=== PATIENT | female | born 1995 | race African-American/Black ===

== ENCOUNTER 2018-05-22 20:45 | Inpatient (IN) ==
[2018-05-22] MEDS ORDERED: Sodium Chlor 0.9% Inj 500 ML IV.SIG SCH (23:00)
[2018-05-22 23:05] LABS: Bilirubin,Urine Negative (Negative); Clarity,Urine Slightly Cloudy (Clear); Color,Urine Yellow (Yellw/Straw); Glucose,Urine (UA) Negative (Negative); Leukocyte Esterase,Urine Small (Negative); Nitrite,Urine Negative (Negative); PH,Urine 5.5 (5.0-8.5); Specific Gravity,Urine 1.015 (1.002-1.035); Urobilinogen,Urine 0.2 mg/dL (Less than 2)
[2018-05-22 23:06] LABS: Baso % (Auto) 0.2 % (0.0-2.0); Eos % (Auto) 0.5 % (0.0-4.0); Hematocrit 34.2 % (35.0-46.0); Hemoglobin 11.4 gm/dL (11.6-15.3); Lymph # (Auto) 0.7 th/mm3 (1.0-4.8); Lymph % (Auto) 7.1 % (9.0-44.0); Mean Corpuscular HGB Conc 33.4 % (32.0-36.0); Mean Corpuscular Hemoglobin 29.9 pg (27.0-34.0); Mean Corpuscular Volume 89.7 fL (80.0-100.0); Mean Platelet Volume 7.9 fL (7.0-11.0); Mono # (Auto) 1.6 th/mm3 (0.0-0.9); Mono % (Auto) 17.1 % (0.0-8.0); Neut # (Auto) 7.3 th/mm3 (1.8-7.7); Neut % (Auto) 75.1 % (16.0-70.0); Platelet Count 102 th/mm3 (150-450); Red Blood Count 3.81 mil/mm3 (4.00-5.30); Red Cell Distribution Width 14.3 % (11.6-17.2); White Blood Count 9.6 th/mm3 (4.0-11.0)
[2018-05-22 23:10] LABS: WBC,Urine 21-50 /hpf (0-5)
[2018-05-22 23:11] LABS: Bacteria,Urine Few /hpf
[2018-05-22 23:13] LABS: Chloride 108 meq/L (98-107); Potassium 3.8 meq/L (3.5-5.1); Sodium 137 meq/L (136-145)
[2018-05-22 23:16] LABS: Anion Gap 8 meq/L (5-15); Calcium 8.8 mg/dL (8.5-10.1); Carbon Dioxide 20.9 meq/L (21.0-32.0)
[2018-05-22 23:17] LABS: Blood Urea Nitrogen 28 mg/dL (7-18); Glucose,Random 111 mg/dL (74-106)
[2018-05-22 23:19] LABS: Alanine Aminotransferase 11 U/L (10-53)
[2018-05-22 23:20] LABS: Aspartate Aminotransferase 14 U/L (15-37); Glomerular Filtration Rate 24 mL/min (>89)
[2018-05-22 23:21] LABS: Total Protein 6.7 g/dL (6.4-8.2)
[2018-05-22 23:22] LABS: Alkaline Phosphatase 85 U/L (45-117)
--- NOTE | 2018-05-22 23:53 | ED ---
HPI General Chief complaint: Nausea/Vomiting/Diarrhea Stated complaint: vomiting/diarrhea x today Source: patient Mode of arrival: ambulatory Limitations: no limitations History of Present Illness HPI narrative: Patient is a 23-year-old female with history of renal transplant one year ago, who comes in complaining of nausea, vomiting, diarrhea at this morning. She says it is been going on all day. She denies any abdominal pain. She says she had a fever of 101 today. She took Tylenol which helped. She denies cough or cold symptoms. She denies urinary symptoms. She says the last thing she ate prior to feeling sick was a salad. She denies any sick contacts. Severity is mild to moderate. Related Data Home Medications Medication Instructions Recorded Confirmed Multi Vitamin 05/22/18 aspirin [Aspir-81] 81 mg PO DAILY 05/22/18 05/22/18 carvedilol [Coreg] 25 mg PO BID 05/22/18 05/22/18 ciprofloxacin HCl [Cipro] 500 mg PO Q12H 05/22/18 05/22/18 furosemide [Lasix] 40 mg PO DAILY 05/22/18 05/22/18 magnesium oxide 400 mg PO BID 05/22/18 05/22/18 nifedipine 60 mg PO DAILY 05/22/18 05/22/18 prednisone 5 mg PO DAILY 05/22/18 05/22/18 sodium bicarbonate 325 mg PO BID 05/22/18 05/22/18 tacrolimus [Prograf] 2 mg PO Q12H 05/22/18 05/22/18 Allergies Allergy/AdvReac Type Severity Reaction Status Date / Time No Known Allergies Allergy Verified 05/22/18 22:19 Review of Systems ROS: all other systems reviewed are negative Constitutional Denies chills and Denies fever(s) ENT Denies dizziness Cardiovascular Denies chest pain and Denies dyspnea Respiratory Denies cough Gastrointestinal Denies abdominal pain, Reports diarrhea, Reports nausea and Reports vomiting Musculoskeletal Denies myalgias and Denies arthralgias Integumentary/Breasts Denies rash and Denies wounds Neurologic Denies focal weakness and Denies numbness [facility] Medical History Medical History Arteriovenous fistula (Acute) History of end stage renal disease (Acute) History of hypertension (Acute) Surgical History Surgical History History of kidney transplant (Acute) Social History Social History Substance History: No History of Abuse Second Hand Smoke Exposure: No Smoking Status: Never smoker How Often Do You Have a Drink Containing Alcohol: Never Recent Travel in [facility] within the Last 8 Weeks: No Recent Out of Country Travel within the Last 8 Weeks: No Immunization History Tetanus Immunization: <5 Years Hx Influenza Vaccine This Season: No Exam Narrative Exam Narrative: GENERAL: Awake and alert, in no acute distress. SKIN: Focused skin assessment warm/dry. HEAD: Atraumatic. Normocephalic. EYES: Pupils equal and round. No scleral icterus. ENT: Mucous membranes pink and moist. NECK: Trachea midline. No JVD. CARDIOVASCULAR: Regular rate and rhythm. No murmur appreciated. RESPIRATORY: No accessory muscle use. Clear to auscultation. Breath sounds equal bilaterally. GASTROINTESTINAL: Abdomen soft, non-tender, nondistended. No CVA tenderness. MUSCULOSKELETAL: No obvious deformities. No clubbing. No cyanosis. No edema. NEUROLOGICAL: Awake and alert. No obvious cranial nerve deficits. Motor grossly within normal limits. Normal speech. PSYCHIATRIC: Appropriate mood and affect; insight and judgment normal. Course Initial Documented Vital Signs Temperature 99.7 F H 05/22/18 21:04 Pulse Rate 115 H 05/22/18 21:04 Respiratory Rate 18 05/22/18 21:04 Blood Pressure 126/78 05/22/18 21:04 Pulse Oximetry 98 05/22/18 21:04 Last Documented Vital Signs Temperature 99.7 F H 05/22/18 21:04 Pulse Rate 90 05/23/18 00:35 Respiratory Rate 16 05/23/18 00:35 Blood Pressure 128/82 05/23/18 00:35 Pulse Oximetry 97 05/22/18 23:11 Medical Decision Making MDM Narrative Medical decision making narrative: Patient is a 23-year-old female, with history of renal transplant, who comes in complaining of nausea, vomiting, diarrhea. Exam shows no abdominal tenderness. IV established, labs sent. Labs concerning for a creatinine of 2.9. Patient believes her last creatinine was 1.9. I spoke with our health sciences program coordinator who suggests admission and hydration. she will contact [facility] tomorrow for a plan going forward. Patient given IV fluids and Zofran. Admitted for further management. Medical Screen Exam Complete: Yes Emergency Medical Condition: Yes Differential Diagnosis Differential Diagnosis: Gastroenteritis versus colitis versus kidney injury Lab Data Lab results reviewed: Yes I reviewed the patient's lab results. Result diagrams: 05/22/18 23:00 05/22/18 23:00 POC Results POC Urine Results Negative Lab Results 05/22/18 05/22/18 05/22/18 Range/Units 23:00 23:00 23:00 CBC w Diff Auto diff final WBC 9.6 (4.0-11.0) th/mm3 RBC 3.81 L (4.00-5.30) mil/mm3 Hgb 11.4 L (11.6-15.3) gm/dL Hct 34.2 L (35.0-46.0) % MCV 89.7 (80.0-100.0) fL MCH 29.9 (27.0-34.0) pg MCHC 33.4 (32.0-36.0) % RDW 14.3 (11.6-17.2) % Plt Count 102 L (150-450) th/mm3 MPV 7.9 (7.0-11.0) fL Neut % (Auto) 75.1 H (16.0-70.0) % Lymph % (Auto) 7.1 L (9.0-44.0) % [place] % (Auto) 17.1 H (0.0-8.0) % Eos % (Auto) 0.5 (0.0-4.0) % Baso % (Auto) 0.2 (0.0-2.0) % Neut # (Auto) 7.3 (1.8-7.7) th/mm3 Lymph # (Auto) 0.7 L (1.0-4.8) th/mm3 [place] # (Auto) 1.6 H (0.0-0.9) th/mm3 Eos # (Auto) 0.0 (0.0-0.4) th/mm3 Baso # (Auto) 0.0 (0.0-0.2) th/mm3 WBC Differential . Differential Comment . Sodium 137 (136-145) meq/L Potassium 3.8 (3.5-5.1) meq/L Chloride 108 H (98-107) meq/L Carbon Dioxide 20.9 L (21.0-32.0) meq/L Anion Gap 8 (5-15) meq/L BUN 28 H (7-18) mg/dL Creatinine 2.90 H (0.50-1.00) mg/dL Estimated GFR 24 L (>89) mL/min Random Glucose 111 H (74-106) mg/dL Lactic Acid 0.6 (0.4-2.0) mmol/L Calcium 8.8 (8.5-10.1) mg/dL Total Bilirubin 0.8 (0.2-1.0) mg/dL AST 14 L (15-37) U/L ALT 11 (10-53) U/L Alkaline Phosphatase 85 (45-117) U/L Total Protein 6.7 (6.4-8.2) g/dL Albumin 3.0 L (3.4-5.0) g/dL Urine Color (Yellw/Straw) Urine Clarity (Clear) Urine pH (5.0-8.5) Ur Specific [place] (1.002-1.035) Urine Protein (Neg-Trace) mg/dL Urine Glucose (UA) (Negative) mg/dL Urine Ketones (Negative) mg/dL Urine Occult Blood (Negative) Urine Nitrate (Negative) Urine Bilirubin (Negative) Urine Urobilinogen (Less than 2) mg/dL Ur Leukocyte Esterase (Negative) Urine RBC (0-3) /hpf Urine WBC (0-5) /hpf Ur Squamous Epith Cells (0-5) /hpf Urine Bacteria (None) /hpf Micro UA Comment Ur Microscopic Review Urine Culture Comments 05/22/18 Range/Units 23:00 CBC w Diff WBC (4.0-11.0) th/mm3 RBC (4.00-5.30) mil/mm3 Hgb (11.6-15.3) gm/dL Hct (35.0-46.0) % MCV (80.0-100.0) fL MCH (27.0-34.0) pg MCHC (32.0-36.0) % RDW (11.6-17.2) % Plt Count (150-450) th/mm3 MPV (7.0-11.0) fL Neut % (Auto) (16.0-70.0) % Lymph % (Auto) (9.0-44.0) % [place] % (Auto) (0.0-8.0) % Eos % (Auto) (0.0-4.0) % Baso % (Auto) (0.0-2.0) % Neut # (Auto) (1.8-7.7) th/mm3 Lymph # (Auto) (1.0-4.8) th/mm3 [place] # (Auto) (0.0-0.9) th/mm3 Eos # (Auto) (0.0-0.4) th/mm3 Baso # (Auto) (0.0-0.2) th/mm3 WBC Differential Differential Comment Sodium (136-145) meq/L Potassium (3.5-5.1) meq/L Chloride (98-107) meq/L Carbon Dioxide (21.0-32.0) meq/L Anion Gap (5-15) meq/L BUN (7-18) mg/dL Creatinine (0.50-1.00) mg/dL Estimated GFR (>89) mL/min Random Glucose (74-106) mg/dL Lactic Acid (0.4-2.0) mmol/L Calcium (8.5-10.1) mg/dL Total Bilirubin (0.2-1.0) mg/dL AST (15-37) U/L ALT (10-53) U/L Alkaline Phosphatase (45-117) U/L Total Protein (6.4-8.2) g/dL Albumin (3.4-5.0) g/dL Urine Color Yellow (Yellw/Straw) Urine Clarity Slightly cloudy (Clear) Urine pH 5.5 (5.0-8.5) Ur Specific [place] 1.015 (1.002-1.035) Urine Protein Trace (Neg-Trace) mg/dL Urine Glucose (UA) Negative (Negative) mg/dL Urine Ketones Negative (Negative) mg/dL Urine Occult Blood Trace (Negative) Urine Nitrate Negative (Negative) Urine Bilirubin Negative (Negative) Urine Urobilinogen 0.2 (Less than 2) mg/dL Ur Leukocyte Esterase Small H (Negative) Urine RBC 4-15 H (0-3) /hpf Urine WBC 21-50 H (0-5) /hpf Ur Squamous Epith Cells 6-10 H (0-5) /hpf Urine Bacteria Few H (None) /hpf Micro UA Comment Culture indicated Ur Microscopic Review Microscopic reviewed Urine Culture Comments Culture indicated Discharge Plan Discharge Disposition Patient Disposition: 30 Still Patient Discharge Condition Condition: Stable Discharge Details Diagnosis: Nausea, vomiting and diarrhea, ZAHRA (acute kidney injury) Physicians Team ED Provider: Paulina Peres Attending Provider: Kasie Melendez Discharge Interventions Interventions: Vital Signs Last Done: 05/22/18 23:11 Status ED Status: Admitted Patient
[2018-05-23] MEDS ORDERED: Morphine Sulfate Inj 2 MG/ML Vial IV.PUSH PRN
[2018-05-23] MEDS ORDERED: Acetaminophen 325 MG Tablet PO PRN (00:01)
[2018-05-23] MEDS ORDERED: Bisacodyl 10 MG Supp RECTAL PRN (00:01)
[2018-05-23] MEDS: Sod Chloride 0.9% Inj 1,000 ML IV.CONT SCH ×4 (00:31→22:59)
[2018-05-23] MEDS ORDERED: Sodium Chlor 0.9% Inj 500 ML IV.SIG SCH (01:00)
[2018-05-23 05:34] LABS: Chloride 112 meq/L (98-107); Potassium 4.5 meq/L (3.5-5.1); Sodium 141 meq/L (136-145)
[2018-05-23 05:45] LABS: Alkaline Phosphatase 86 U/L (45-117); Anion Gap 10 meq/L (5-15); Blood Urea Nitrogen 30 mg/dL (7-18); Calcium 8.8 mg/dL (8.5-10.1); Carbon Dioxide 18.6 meq/L (21.0-32.0)
[2018-05-23 05:46] LABS: Glucose,Random 71 mg/dL (74-106)
[2018-05-23 05:48] LABS: Alanine Aminotransferase 11 U/L (10-53); Aspartate Aminotransferase 15 U/L (15-37); Glomerular Filtration Rate 27 mL/min (>89)
[2018-05-23 05:50] LABS: Total Protein 6.4 g/dL (6.4-8.2)
[2018-05-23] MEDS: Carvedilol 12.5 MG Tablet PO SCH ×2 (08:09→20:47)
[2018-05-23] MEDS: predniSONE 5 MG Tablet PO SCH (08:12)
[2018-05-23] MEDS: Senna/Docusate Sodium 8.6/50 MG Tablet PO SCH ×2 (08:13→20:38)
[2018-05-23 08:19] LABS: Baso # (Auto) 0.1 th/mm3 (0.0-0.2); Baso % (Auto) 0.7 % (0.0-2.0); Eos % (Auto) 0.2 % (0.0-4.0); Hematocrit 34.1 % (35.0-46.0); Hemoglobin 10.8 gm/dL (11.6-15.3); Lymph # (Auto) 0.6 th/mm3 (1.0-4.8); Mean Corpuscular HGB Conc 31.8 % (32.0-36.0); Mean Corpuscular Hemoglobin 28.2 pg (27.0-34.0); Mean Corpuscular Volume 88.9 fL (80.0-100.0); Mean Platelet Volume 8.3 fL (7.0-11.0); Mono # (Auto) 1.1 th/mm3 (0.0-0.9); Mono % (Auto) 12.1 % (0.0-8.0); Neut # (Auto) 7.4 th/mm3 (1.8-7.7); Platelet Count 100 th/mm3 (150-450); Red Blood Count 3.83 mil/mm3 (4.00-5.30); Red Cell Distribution Width 14.1 % (11.6-17.2); White Blood Count 9.2 th/mm3 (4.0-11.0)
--- NOTE | 2018-05-23 08:30 | P.HP ---
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 Patient is followed by kidney transplant team at [facility] by Dr. Kary Ingram, transplant call or contact centre team leader Tamar Caceres. Patient did undergo kidney transplant on October 10, 2016 because of focal segmental glomerular sclerosis. Patient has been monitored by the kidney transplant team and is on immunosuppressive medications to include prednisone, Prograf. Patient has had complicated infections with BK virus in June 2017 as well as recent history of Clostridium differential infection in March 2018. Patient does live in [facility], however she is up here visiting at this time. She started developing flulike symptoms on Wednesday with fever, chills, cold symptoms. Patient started taking [id number] Robitussin multisymptom medication and she was doing well then Wednesday she started having loose stools which did not resolve. Then Wednesday she started developing intractable nausea, vomiting and persisted with the diarrhea illness. Patient then came to the emergency department for evaluation. Patient denies any recent antibiotic use, however she indicates that her stool was the same consistency and odor as her previous Clostridium difficile infection. Patient was evaluated emergency department and the ER physician documented that they spoke with the nursing unit coordinator who suggested admission and hydration and to follow-up contact with the transplant team today. Upon evaluating the patient today she does still have signs of sepsis with fever 103.1, tachycardia, diarrhea illness, possible urinary tract infection. Renal functions have had minimal improvement from creatinine 2.9 down to 2.6. Patient indicates that her baseline creatinine is usually 1.9. Patient is resting comfortably in bed. I did get information from her regarding her transplant team phone numbers. I have contacted them and waiting phone call back. - Diagnosis (1) Sepsis (2) Immunosuppression (3) Status post kidney transplant (4) Diarrhea (5) Acute kidney injury Inpatient Certification: I certify that the inpatient services were ordered in accordance with Medicare regulations governing the order. This includes certification that hospital inpatient services are reasonable and necessary and in the case of services not specified as inpatient-only under 42 CFR 419.22(n), that they are appropriately provided as inpatient services in accordance to with the 2-midnight benchmark under 43 CFR 412.3(e) Estimated Total Length of Stay (Days): 2 Plans for Post Hospital Care: Not yet determined Review of Systems All other systems reviewed negative except as stated in HPI Constitutional: Reports chills, Reports fever(s) Gastrointestinal: Reports loose stools, Reports nausea, Reports vomiting PMFSH - History History Provided By: Patient - Medical History Medical History: Medical History (Last Updated 05/23/18 @ 08:19 by SETH Walker) Arteriovenous fistula BK polyoma nephropathy Focal segmental glomerulosclerosis History of Clostridium difficile infection History of end stage renal disease History of hypertension - Surgical History Surgical History: Surgical History (Last Updated 05/23/18 @ 08:20 by SETH Walker) Arteriovenous fistula History of kidney transplant - Family History Family History: Family History (Last Updated 05/23/18 @ 08:20 by SETH Walker) Father History of end stage renal disease History of diabetes mellitus Mother History of end stage renal disease History of diabetes mellitus - Tobacco History Second Hand Smoke Exposure: No Tobacco Use In Past 30 Days: No Smoking Status: Never smoker - Alcohol History How Often Do You Have a Drink Containing Alcohol: Never - Substance Use History Substance History: No History of Abuse - Travel History Recent Travel in the [place] Within the Last 8 Weeks: No Recent Travel Out of the Country Within the Last 8 Weeks: No - Immunization History Tetanus Immunization: <5 Years Hx Influenza Vaccine This Season: No Medications and Allergies Active Medications: Active Medications Acetaminophen (Tylenol) 650 mg PO Q4H PRN PRN Reason: Temp > 100.4 Al Hydroxide/Mg Hydroxide (Milk Of Anahi Liq) 30 ml PO Q12H PRN PRN Reason: Mild Constipation Bisacodyl (Dulcolax Supp) 10 mg RECTAL DAILY PRN PRN Reason: SEVERE CONSITIPATION Carvedilol (Coreg) 25 mg PO BID AZAM Sodium Chloride (Ns Inj) 500 mls @ 0 mls/hr IV.SIG BOLUS AZAM Last Infusion: 05/22/18 23:46 Dose: Infused Sodium Chloride (Ns Inj) 500 mls @ 0 mls/hr IV.SIG BOLUS AZAM Sodium Chloride (Ns Inj) 1,000 mls @ 100 mls/hr IV.CONT .Q10H AZAM Last Admin: 05/23/18 00:31 Dose: 100 mls/hr Ceftriaxone Sodium 1,000 mg/ (Sodium Chloride) 100 mls @ 200 mls/hr IV.SIG Q24H [facility] Last Infusion: 05/23/18 01:45 Dose: Infused Lactulose (Lactulose Liq) 30 ml PO DAILY PRN PRN Reason: SEVERE CONSITIPATION Morphine Sulfate (Morphine Inj) 2 mg IV.PUSH Q4H PRN PRN Reason: PAIN 6-10 Nifedipine (Procardia Xl) 60 mg PO DAILY [facility] Ondansetron HCl (Zofran Inj) 4 mg IV.PUSH Q6H PRN PRN Reason: NAUSEA OR VOMITING Prednisone (Deltasone) 5 mg PO DAILY [facility] Senna/Docusate Sodium (Brooke-Colace) 1 tab PO BID [facility] Sennosides (Senokot) 17.2 mg PO Q12H PRN PRN Reason: Moderate Constipation Sodium Bicarbonate (Sodium Bicarbonate) 325 mg PO BID [facility] Sodium Chloride (Ns Flush) 2 ml IV.FLUSH PRN PRN PRN Reason: FLUSH AFTER USING IV ACCESS Tacrolimus (Prograf) 2 mg PO Q12H [facility] Last Admin: 05/23/18 00:31 Dose: 2 mg Allergies Allergy/AdvReac Type Severity Reaction Status Date / Time No Known Allergies Allergy Verified 05/22/18 22:19 Home Medications Medication Instructions Recorded Confirmed Type Multi Vitamin 05/22/18 History aspirin [Aspir-81] 81 mg PO DAILY 05/22/18 05/22/18 History carvedilol [Coreg] 25 mg PO BID 05/22/18 05/22/18 History ciprofloxacin HCl [Cipro] 500 mg PO Q12H 05/22/18 05/22/18 History furosemide [Lasix] 40 mg PO DAILY 05/22/18 05/22/18 History magnesium oxide 400 mg PO BID 05/22/18 05/22/18 History nifedipine 60 mg PO DAILY 05/22/18 05/22/18 History prednisone 5 mg PO DAILY 05/22/18 05/22/18 History sodium bicarbonate 325 mg PO BID 05/22/18 05/22/18 History tacrolimus [Prograf] 2 mg PO Q12H 05/22/18 05/22/18 History Exam Vital signs: Vital Signs 05/22/18 21:04 05/22/18 23:11 05/23/18 00:35 Temperature 99.7 F H Pulse Rate 115 H 95 H 90 Respiratory Rate 18 17 16 Blood Pressure 126/78 128/82 Pulse Oximetry 98 97 05/23/18 02:45 05/23/18 04:00 05/23/18 06:49 Temperature 98.6 F 98.3 F Pulse Rate 92 H 101 H 121 H Respiratory Rate 20 16 22 Blood Pressure 134/85 180/111 H 166/118 H Pulse Oximetry 99 100 Intake & Output 05/22/18 05/23/18 05/23/18 18:59 06:59 18:59 Intake Total 600 / 600 Output Total 250 / 250 250 / 250 Balance 350 / 350 -250 / -250 Weight 71.3 kg Intake: IV 600 / 600 NS Inj 500 ML @ Wide Open IV. 500 / 500 SIG BOLUS AZAM Rx#:[id number] Rocephin Inj 1,000 MG In NS Inj 100 / 100 100 ML @ 200 mls/hr IV.SIG Q24H AZAM Rx#:[id number] Output: Urine 250 / 250 250 / 250 Other: Date of Last Bowel Movement 05/23/18 Weight On Admission 71.1 kg Narrative: GENERAL: Well-developed, well-nourished, in no acute distress. alert and orientated HEENT: Head is normocephalic without any lesions or masses noted. Facial features are symmetric. Eyes: Pupils equal round reactive to light. Extraocular muscles are intact. Conjunctivae were clear. Oropharyngeal: Pharynx without any erythema edema. Tongue is midline without deviation. Buccal mucosa is moist without any masses or lesions NECK: Supple without any masses. Trachea midline no deviation. No JVD, no bruits are appreciated CARDIAC: Regular rhythm, regular rate. S1/S2 are heard. No murmurs gallops or rubs. LUNGS: Clear to auscultation bilaterally. No wheeze, rhonchi or rales. No use of accessory muscles on inspiration or expiration. ABDOMEN: Soft, nontender. Nondistended. Bowel sounds heard in all 4 quadrants. No organomegaly or masses. Negative rebound, negative guarding EXTREMITIES: No edema, pulses are equal bilaterally. No cyanosis or clubbing NEUROLOGY: Mood and affect appear appropriate. Cranial nerves II through XII grossly intact. Muscle strength 5/5 in upper and lower extremities bilaterally. Deep tendon reflexes are 2+ in upper and lower extremities bilaterally. Results - Labs CBC & Chem 7: 05/22/18 23:00 05/23/18 05:08 Labs: Laboratory Results - last 24 hr 05/22/18 05/22/18 05/22/18 23:00 23:00 23:00 CBC w Diff Auto diff final WBC 9.6 RBC 3.81 L Hgb 11.4 L Hct 34.2 L MCV 89.7 MCH 29.9 MCHC 33.4 RDW 14.3 Plt Count 102 L MPV 7.9 Neut % (Auto) 75.1 H Lymph % (Auto) 7.1 L [place] % (Auto) 17.1 H Eos % (Auto) 0.5 Baso % (Auto) 0.2 Neut # (Auto) 7.3 Lymph # (Auto) 0.7 L [place] # (Auto) 1.6 H Eos # (Auto) 0.0 Baso # (Auto) 0.0 WBC Differential . Differential Comment . Sodium 137 Potassium 3.8 Chloride 108 H Carbon Dioxide 20.9 L Anion Gap 8 BUN 28 H Creatinine 2.90 H Estimated GFR 24 L Random Glucose 111 H Lactic Acid 0.6 Calcium 8.8 Total Bilirubin 0.8 AST 14 L ALT 11 Alkaline Phosphatase 85 Total Protein 6.7 Albumin 3.0 L Urine Color Urine Clarity Urine pH Ur Specific [place] Urine Protein Urine Glucose (UA) Urine Ketones Urine Occult Blood Urine Nitrate Urine Bilirubin Urine Urobilinogen Ur Leukocyte Esterase Urine RBC Urine WBC Ur Squamous Epith Cells Urine Bacteria Micro UA Comment Ur Microscopic Review Urine Culture Comments 05/22/18 05/23/18 23:00 05:08 CBC w Diff WBC RBC Hgb Hct MCV MCH MCHC RDW Plt Count MPV Neut % (Auto) Lymph % (Auto) [place] % (Auto) Eos % (Auto) Baso % (Auto) Neut # (Auto) Lymph # (Auto) [place] # (Auto) Eos # (Auto) Baso # (Auto) WBC Differential Differential Comment Sodium 141 Potassium 4.5 Chloride 112 H Carbon Dioxide 18.6 L Anion Gap 10 BUN 30 H Creatinine 2.60 H Estimated GFR 27 L Random Glucose 71 L Lactic Acid Calcium 8.8 Total Bilirubin 1.0 AST 15 ALT 11 Alkaline Phosphatase 86 Total Protein 6.4 Albumin 3.0 L Urine Color Yellow Urine Clarity Slightly cloudy Urine pH 5.5 Ur Specific [place] 1.015 Urine Protein Trace Urine Glucose (UA) Negative Urine Ketones Negative Urine Occult Blood Trace Urine Nitrate Negative Urine Bilirubin Negative Urine Urobilinogen 0.2 Ur Leukocyte Esterase Small H Urine RBC 4-15 H Urine WBC 21-50 H Ur Squamous Epith Cells 6-10 H Urine Bacteria Few H Micro UA Comment Culture indicated Ur Microscopic Review Microscopic reviewed Urine Culture Comments Culture indicated Caprini VTE Risk Assessment Caprini VTE Risk Assessment: Moderate/High Risk (score >= 2) Caprini Risk Assessment Model: Point Value = 1 Point Value = 2 Point Value = 3 Point Value = 5 Age 41-60 Minor surgery BMI > 25 kg/m2 Swollen legs Varicose veins or History of unexplained or recurrent spontaneous Oral contraceptives or hormone replacement Sepsis (< 1 month) Serious lung disease, including pneumonia (< 1 month) Abnormal pulmonary function Acute myocardial infarction Congestive heart failure (< 1 month) History of inflammatory bowel disease Medical patient at bed rest Age 61-74 Arthroscopic surgery Major open surgery (> 45 min) Laparoscopic surgery (> 45 min) Malignancy Confined to bed (> 72 hours) Immobilizing plaster cast Central venous access Age >= 75 History of VTE Family history of VTE Factor V Leiden Prothrombin [id number] Lupus anticoagulant Anticardiolipin antibodies Elevated serum homocysteine Heparin-induced thrombocytopenia Other congenital or acquired thrombophilia Stroke (< 1 month) Elective arthroplasty Hip, pelvis, or leg fracture Acute spinal cord injury (< 1 month) Prophylaxis Regimen: Total Risk Factor Score Risk Level Prophylaxis Regimen 0-1 Low Early ambulation 2 Moderate Order ONE of the following: *Sequential Compression Device (SCD) *Heparin 5000 units SQ BID 3-4 Higher Order ONE of the following medications: *Heparin 5000 units SQ TID *Enoxaparin/Lovenox 40 mg SQ daily (WT < 150 kg, CrCl > 30 mL/min) *Enoxaparin/Lovenox 30 mg SQ daily (WT < 150 kg, CrCl > 10-29 mL/min) *Enoxaparin/Lovenox 30 mg SQ BID (WT < 150 kg, CrCl > 30 mL/min) AND/OR *Sequential Compression Device (SCD) 5 or more Highest Order ONE of the following medications: *Heparin 5000 units SQ TID (Preferred with Epidurals) *Enoxaparin/Lovenox 40 mg SQ daily (WT < 150 kg, CrCl > 30 mL/min) *Enoxaparin/Lovenox 30 mg SQ daily (WT < 150 kg, CrCl > 10-29 mL/min) *Enoxaparin/Lovenox 30 mg SQ BID (WT < 150 kg, CrCl > 30 mL/min) AND *Sequential Compression Device (SCD) Assessment and Plan - Assessment (1) Sepsis Code(s): A41.9 - Sepsis, unspecified organism Status: Acute (2) Immunosuppression Code(s): D89.9 - Disorder involving the immune mechanism, unspecified Status: Acute (3) Status post kidney transplant Code(s): Z94.0 - Kidney transplant status Status: Acute (4) Diarrhea Code(s): R19.7 - Diarrhea, unspecified Status: Acute (5) Acute kidney injury Code(s): N17.9 - Acute kidney failure, unspecified Status: Acute - Plan Sepsis -This is a rather complicated and serious case with patient having kidney transplant, immunosuppression with signs of sepsis to include fever, tachycardia , diarrhea illness, possible urinary tract infection, history of C. difficile infection, history of BK virus -Patient was started on Rocephin, -Will add IV Flagyl until stool studies can be obtained -Urine cultures pending -BK virus testing is pending -We will obtain blood cultures, C. difficile culture, stool studies -Continue IV hydration Kidney transplant patient with worsening renal function, acute kidney injury -Continue IV hydration -Continue monitor renal function -Contacted renal transplant team at [facility] at [phone], awaiting nursing unit coordinator Tamar Romo to contact me back -Due to the patient having sepsis at this time. I believe that transferring to patient's transplant team will be essential -We will continue patient's antirejection medication Hypertension -Continue home medications DVT prevention -Sequential compression devices
[2018-05-23 09:15] LABS: Eosinophils 1 % (0-4); Lymphocytes 9 % (9-44); Monocytes 10 % (0-8)
[2018-05-23 09:17] LABS: Platelet Morphology Normal (Normal)
--- NOTE | 2018-05-23 12:03 | P.CONTS ---
History of Present Illness Service: Transplant Surgery Consult date: 05/23/18 Reason for Consult: S/p second kidney transplant admitted with ZAHRA/N/V/D Primary Care Provider: SANTANA INGRAM Chief Complaint: Nausea, vomiting, diarrhea History of Present Illness: 23 yof who underwent a right iliac fossa renal transplant on 10/07/2008, due to FSGS/HTN. 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 Patient was then retransplanted on 10/10/[address] Gutierrez (left iliac fossa renal transplant). 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 She also had a C Diff infection in March 2018. She is followed by Dr Ureña at [facility]. She lives in [facility] and was visiting the [facility] area. She was in her usual state of health, then last week began having some rhinorrhea, then on Wednesday evening developed myalgias, felt dizzy, and developed chills (? "flu-like" symptoms). She got some medications from [facility] , including Robitussin. Wednesday morning felt fine, then on Wednesday evening started having "loose stools". Had 2 loose stools. Then on Wednesday was trying to hydrate with Gator-sydney, had 2 more loose stools in the morning, then Wednesday evening had 2 more loose stools and developed "intractable nausea", so came to the ED at [facility] in [facility]. Was admitted overnight and hydration started with IVF (NS at 100 ml/hr). I was consulted this AM. Review of Systems Constitutional: Reports body ache(s), Reports chills, Reports malaise Comments: Increased sweating Eyes: Denies blind spots, Denies blurry vision, Denies bulging eyes, Denies change in vision, Denies double vision, Denies discharge, Denies dry eyes, Denies floaters, Denies irritation, Denies itchy eyes, Denies loss of vision, Denies pain, Denies requires corrective lenses, Denies sensitivity to light, Denies other Comments: rhinorrhea-improved Cardiovascular: Denies chest pain, Denies chest pain at rest, Denies chest pain with activity, Denies excessive sweating, Denies fainting, Denies fast heart rate, Denies foot swelling, Denies generalized swelling, Denies irregular heart rhythm, Denies leg pain with activity, Denies leg sores, Denies leg swelling, Denies lightheadedness, Denies radiating jaw, neck or arm pain, Denies rapid, pounding, or irregular heartbeat, Denies shortness of breath, Denies shortness of breath with activity, Denies shortness of breath when lying down, Denies shortness of breath causing sudden awakening, Denies slow heart rate, Denies other Respiratory: Denies change in phlegm color, Denies chest congestion, Denies cough, Denies coughing up blood, Denies excessive phlegm production, Denies pain on inspiration, Denies pain with cough, Denies shortness of breath, Denies shortness of breath with activity, Denies snoring, Denies stridor, Denies wheezing, Denies other Gastrointestinal: Denies abdominal pain, Denies belching, Denies black, tarry stools, Denies bloating, Denies bright, red blood in stools, Denies change in bowel habits, Denies constant urge to pass stool, Denies change in stools, Denies coffee ground vomit, Denies constipation, Denies cramping, Denies difficulty swallowing, Denies excessive passing of gas, Denies feeling full early, Denies heartburn, Denies incontinent of stools, Denies loose stools, Denies nausea, Denies pain with swallowing, Denies vomiting, Denies vomiting blood, Denies other Genitourinary: Denies abnormal periods, Denies abnormal vaginal bleeding, Denies absent period, Denies bleeding between periods, Denies blood in urine, Denies difficulty starting urination, Denies difficulty urinating, Denies dribbling after urination, Denies frequent nighttime urination, Denies genital itching, Denies genital lesions, Denies heavy periods, Denies hot flashes, Denies light periods, Denies nipple discharge, Denies painful intercourse, Denies painful periods, Denies painful urination, Denies pelvic pain, Denies prolapse symptoms, Denies sexual problems, Denies side pain, Denies urinary incontinence, Denies urinary urgency, Denies vaginal discharge, Denies vaginal dryness, Denies vaginal odor, Denies vaginal itching, Denies other Comments: uirne output seems to be "same as usual" Musculoskeletal: Reports body aches (improving) Skin/Breast: Denies acne, Denies bleeding lesions, Denies boil, Denies breast swelling, Denies breast skin changes, Denies breast pain, Denies breast lump, Denies change in breast shape, Denies change in hair, Denies change in skin color, Denies changing lesions, Denies dry skin, Denies excessive hair growth, Denies hair loss, Denies itching, Denies lesions, Denies nail changes, Denies new lesions, Denies nipple discharge, Denies non-healing lesions, Denies redness , Denies sensitivity to light, Denies rash, Denies skin pain, Denies skin ulcer , Denies sores, Denies stretch shay, Denies unusual bruising, Denies wounds, Denies yellowing of the skin, Denies other Neurologic: Denies abnormal hearing, Denies abnormal movements, Denies abnormal speech, Denies abnormal walking, Denies behavioral changes, Denies burning sensations, Denies confusion, Denies dizziness, Denies fainting, Denies frequent falls, Denies headache(s), Denies lack of coordination, Denies localized weakness, Denies loss of vision, Denies memory loss, Denies numbness, Denies other visual disturbances, Denies radiating pain, Denies restless legs, Denies convulsions, Denies seizure-like activity, Denies sensory deficit, Denies tingling, Denies tingling/numbness/burning sensations, Denies tremor(s), Denies unsteadiness, Denies weakness, Denies other Endocrine: Denies cold intolerance, Denies excessive sweating, Denies flushing, Denies heat intolerance, Denies increased hunger, Denies increased thirst, Denies increased urination, Denies rapid, pounding, or irregular heartbeat, Denies other Hematologic/Lymphatic: Denies easy bleeding, Denies easy bruising, Denies enlarged lymph nodes, Denies other Allergic/Immunologic: Denies GI upset with certain foods, Denies hives, Denies itchy eyes, Denies lip swelling, Denies seasonal runny nose, Denies throat swelling, Denies tongue swelling, Denies wheezing, Denies other PMFSH - History History Provided By: Patient - Medical History Medical History: Medical History (Last Updated 05/23/18 @ 08:19 by SETH Walker) BK polyoma nephropathy Focal segmental glomerulosclerosis History of Clostridium difficile infection History of end stage renal disease History of hypertension - Surgical History Surgical History: Surgical History (Last Updated 05/23/18 @ 11:44 by Kris Arnett MD) Arteriovenous fistula History of kidney transplant - Family History Family History: Family History (Last Updated 05/23/18 @ 11:44 by Kris Arnett MD) Father History of end stage renal disease History of diabetes mellitus Mother History of diabetes mellitus - Social History I have reviewed the patient's Social History: Yes - Tobacco History Second Hand Smoke Exposure: No Tobacco Use In Past 30 Days: No Smoking Status: Never smoker - Alcohol History How Often Do You Have a Drink Containing Alcohol: Never - Substance Use History Substance History: No History of Abuse - Travel History History of Recent Travel: No Recent Travel in the [place] Within the Last 8 Weeks: No Recent Travel Out of the Country Within the Last 8 Weeks: No - Immunization History Tetanus Immunization: <5 Years Hx Influenza Vaccine This Season: No Medications and Allergies Active Medications: Active Medications Acetaminophen (Tylenol) 650 mg PO Q4H PRN PRN Reason: Temp > 100.4 Last Admin: 05/23/18 08:03 Dose: 650 mg Al Hydroxide/Mg Hydroxide (Milk Of Magnbreezy Liq) 30 ml PO Q12H PRN PRN Reason: Mild Constipation Bisacodyl (Dulcolax Supp) 10 mg RECTAL DAILY PRN PRN Reason: SEVERE CONSITIPATION Carvedilol (Coreg) 25 mg PO BID [facility] Last Admin: 05/23/18 08:09 Dose: 25 mg Sodium Chloride (Ns Inj) 500 mls @ 0 mls/hr IV.SIG BOLUS AZAM Last Infusion: 05/22/18 23:46 Dose: Infused Sodium Chloride (Ns Inj) 500 mls @ 0 mls/hr IV.SIG BOLUS AZAM Sodium Chloride (Ns Inj) 1,000 mls @ 100 mls/hr IV.CONT .Q10H [facility] Last Admin: 05/23/18 00:31 Dose: 100 mls/hr Ceftriaxone Sodium 1,000 mg/ (Sodium Chloride) 100 mls @ 200 mls/hr IV.SIG Q24H [facility] Last Infusion: 05/23/18 01:45 Dose: Infused Metronidazole/Sodium Chloride (Flagyl 500 Mg Inj) 100 mls @ 100 mls/hr IV.SIG Q8H [facility] Lactulose (Lactulose Liq) 30 ml PO DAILY PRN PRN Reason: SEVERE CONSITIPATION Morphine Sulfate (Morphine Inj) 2 mg IV.PUSH Q4H PRN PRN Reason: PAIN 6-10 Nifedipine (Procardia Xl) 60 mg PO DAILY [facility] Last Admin: 05/23/18 08:12 Dose: 60 mg Ondansetron HCl (Zofran Inj) 4 mg IV.PUSH Q6H PRN PRN Reason: NAUSEA OR VOMITING Prednisone (Deltasone) 5 mg PO DAILY [facility] Last Admin: 05/23/18 08:12 Dose: 5 mg Senna/Docusate Sodium (Brooke-Colace) 1 tab PO BID [facility] Last Admin: 05/23/18 08:13 Dose: Not Given Sennosides (Senokot) 17.2 mg PO Q12H PRN PRN Reason: Moderate Constipation Sodium Bicarbonate (Sodium Bicarbonate) 325 mg PO BID [facility] Last Admin: 05/23/18 08:12 Dose: 325 mg Sodium Chloride (Ns Flush) 2 ml IV.FLUSH PRN PRN PRN Reason: FLUSH AFTER USING IV ACCESS Tacrolimus (Prograf) 2 mg PO Q12H [facility] Last Admin: 05/23/18 00:31 Dose: 2 mg Allergies Allergy/AdvReac Type Severity Reaction Status Date / Time No Known Allergies Allergy Verified 05/22/18 22:19 Home Medications Medication Instructions Recorded Confirmed Type Multi Vitamin 05/22/18 History aspirin [Aspir-81] 81 mg PO DAILY 05/22/18 05/22/18 History carvedilol [Coreg] 25 mg PO BID 05/22/18 05/22/18 History ciprofloxacin HCl [Cipro] 500 mg PO Q12H 05/22/18 05/22/18 History furosemide [Lasix] 40 mg PO DAILY 05/22/18 05/22/18 History magnesium oxide 400 mg PO BID 05/22/18 05/22/18 History nifedipine 60 mg PO DAILY 05/22/18 05/22/18 History prednisone 5 mg PO DAILY 05/22/18 05/22/18 History sodium bicarbonate 325 mg PO BID 05/22/18 05/22/18 History tacrolimus [Prograf] 2 mg PO Q12H 05/22/18 05/22/18 History Physical Exam Vital signs: Vital Signs 05/22/18 21:04 05/22/18 23:11 05/23/18 00:35 Temperature 99.7 F H Pulse Rate 115 H 95 H 90 Respiratory Rate 18 17 16 Blood Pressure 126/78 128/82 Pulse Oximetry 98 97 05/23/18 02:45 05/23/18 03:23 05/23/18 04:00 Temperature 98.6 F 98.3 F Pulse Rate 92 H 90 96 H Respiratory Rate 20 26 H 26 H Blood Pressure 134/85 180/111 H Pulse Oximetry 99 99 99 05/23/18 04:39 05/23/18 04:46 05/23/18 05:00 Temperature Pulse Rate 104 H 100 H 104 H Respiratory Rate 21 24 26 H Blood Pressure 172/110 H 180/111 H 183/116 H Pulse Oximetry 99 98 98 05/23/18 06:00 05/23/18 06:43 05/23/18 06:49 Temperature Pulse Rate 112 H 118 H 121 H Respiratory Rate 40 H 32 H 22 Blood Pressure 180/114 H 166/118 H 166/118 H Pulse Oximetry 97 98 05/23/18 07:00 05/23/18 08:00 05/23/18 08:16 Temperature Pulse Rate 124 H 126 H 122 H Respiratory Rate 33 H 20 37 H Blood Pressure 170/97 H Pulse Oximetry 98 98 05/23/18 09:00 05/23/18 09:03 05/23/18 10:00 Temperature Pulse Rate 118 H 118 H 112 H Respiratory Rate 11 L 22 26 H Blood Pressure 152/99 H Pulse Oximetry 97 97 98 05/23/18 10:03 Temperature Pulse Rate 110 H Respiratory Rate 26 H Blood Pressure 131/84 Pulse Oximetry 98 Intake & Output 05/22/18 05/23/18 05/23/18 18:59 06:59 18:59 Intake Total 600 / 600 Output Total 250 / 250 250 / 250 Balance 350 / 350 -250 / -250 Weight 71.3 kg Intake: IV 600 / 600 NS Inj 500 ML @ Wide Open IV. 500 / 500 SIG BOLUS AZAM Rx#:[id number] Rocephin Inj 1,000 MG In NS Inj 100 / 100 100 ML @ 200 mls/hr IV.SIG Q24H AZAM Rx#:[id number] Output: Urine 250 / 250 250 / 250 Other: Date of Last Bowel Movement 05/23/18 Weight On Admission 71.1 kg - Constitutional no acute distress, chronically ill appearing - Routine HEENT Exam Head: Present: normocephalic, atraumatic Eye: Present: EOMI ENT: Present: mucous membranes dry - Routine Neck Exam Present: supple, full ROM Comments: No thyromegaly - Routine Respiratory Exam Present: CTA bilaterally - Routine Cardiovascular Exam Present: RRR, S1, S2 Comments: No murmurs. No carotid bruits - Routine Abdominal Exam Present: soft, normoactive bowel sounds, surgical scars Comments: Well healed abd scars. No umbilical or incisional hernias - Routine Extremities Exam Present: pulses intact Comments: Palpable femoral/DP/PT pulses - Routine Skin Exam Present: intact - Routine Neurological Exam Present: alert, oriented X3 - Detailed Neurological Exam: Coma Scale Verbal Response: Oriented - Routine Psychiatric Exam Present: normal affect, normal thought process Assessment and Plan - Plan 23yo AAF who underwent a right iliac fossa kidney transplant in 2008 then a left iliac fossa kidney transplant in 2017 due to FSGS/HTN. Admitted overnight with probable viral infection. ? URI based on history. Febrile to 103 overnight. With most recent temp down to 99.5. Has ZAHRA with creatinine elevated to 2.9, with some improvement to 2.6 with overnight hydration. Have ordered blood cultures and upper respiratory panel, as well as CMV and EBV PCR (preop EBV/CMV status unknown), in addition to BK virus PCR and stool cultures that were already ordered. Spoke with Dr Sarah Ureña at [facility]. She recommended that we transfer the patient there. The admitting physician, per our discussion will be Dr Monet Akbar. As patient's is hemodynamically stable and her pyrexia seems to have resolved with treatment, it seems reasonable to proceed with transfer at this time. Will plan for transfer to the regular transplant floor at [facility]. The briefcase sewer is working on this currently. I will be available to help with the process as needed.
[2018-05-23] MEDS ORDERED: LEFLUNOMIDE 20 MG PO SCH (13:30)
[2018-05-24 05:00] LABS: Baso % (Auto) 0.2 % (0.0-2.0); Eos # (Auto) 0.1 th/mm3 (0.0-0.4); Eos % (Auto) 0.9 % (0.0-4.0); Hemoglobin 9.7 gm/dL (11.6-15.3); Lymph # (Auto) 0.7 th/mm3 (1.0-4.8); Lymph % (Auto) 11.2 % (9.0-44.0); Mean Corpuscular HGB Conc 32.3 % (32.0-36.0); Mean Corpuscular Hemoglobin 29.2 pg (27.0-34.0); Mean Corpuscular Volume 90.5 fL (80.0-100.0); Mean Platelet Volume 7.6 fL (7.0-11.0); Mono # (Auto) 0.9 th/mm3 (0.0-0.9); Mono % (Auto) 14.1 % (0.0-8.0); Neut # (Auto) 4.8 th/mm3 (1.8-7.7); Neut % (Auto) 73.6 % (16.0-70.0); Platelet Count 82 th/mm3 (150-450); Red Blood Count 3.32 mil/mm3 (4.00-5.30); Red Cell Distribution Width 15.2 % (11.6-17.2); White Blood Count 6.5 th/mm3 (4.0-11.0)
[2018-05-24 05:32] LABS: Calcium 8.8 mg/dL (8.5-10.1); Potassium 3.9 meq/L (3.5-5.1)
[2018-05-24] MEDS: Sod Chloride 0.9% Inj 1,000 ML IV.CONT SCH ×2 (06:28→16:14)
[2018-05-24 07:31] LABS: Lymphocytes 13 % (9-44); Monocytes 5 % (0-8); Ovalocytes 1+
[2018-05-24 07:32] LABS: Platelet Morphology Normal (Normal)
--- NOTE | 2018-05-24 08:15 | P.PNTS ---
Subjective Interval history: No new c/o. Physical Exam Vital signs: Vital Signs 05/23/18 08:16 05/23/18 09:00 05/23/18 09:03 Temperature Pulse Rate 122 H 118 H 118 H Respiratory Rate 37 H 11 L 22 Blood Pressure 170/97 H 152/99 H Pulse Oximetry 98 97 97 05/23/18 10:00 05/23/18 10:03 05/23/18 12:00 Temperature 103.1 F H 99 F Pulse Rate 112 H 110 H 110 H Respiratory Rate 26 H 26 H 26 H Blood Pressure 131/84 Pulse Oximetry 98 98 97 05/23/18 14:07 05/23/18 16:00 05/23/18 19:02 Temperature 98.1 F Pulse Rate 88 104 H 98 H Respiratory Rate 20 23 24 Blood Pressure 110/66 132/85 Pulse Oximetry 98 99 100 05/23/18 20:00 05/23/18 21:00 05/23/18 22:00 Temperature 98.5 F Pulse Rate 96 H 98 H 96 H Respiratory Rate 26 H 25 H 24 Blood Pressure 146/99 H 142/96 H Pulse Oximetry 99 05/24/18 00:00 05/24/18 00:01 05/24/18 04:00 Temperature 98.8 F 98.8 F Pulse Rate 98 H 97 H 108 H Respiratory Rate 21 24 Blood Pressure 147/77 H 141/89 H Pulse Oximetry 98 98 Intake & Output 05/23/18 05/24/18 05/24/18 18:59 06:59 18:59 Intake Total 820 / 820 1640 / 1640 Output Total 650 / 650 Balance 170 / 170 1640 / 1640 Weight 72.4 kg Intake: IV 100 / 100 1300 / 1300 NS Inj 1,000 ML @ 100 mls/hr IV 1000 / 1000 .CONT .Q10H AZAM Rx#:[id number] Rocephin Inj 1,000 MG In NS Inj 100 / 100 100 ML @ 200 mls/hr IV.SIG Q24H AZAM Rx#:[id number] Flagyl 500 MG Inj 100 ML @ 100 100 / 100 200 / 200 mls/hr IV.SIG Q8H AZAM Rx#: [id number] Oral 720 / 720 340 / 340 Output: Urine 650 / 650 Other: # Voids 3 Date of Last Bowel Movement 05/23/18 05/22/18 - Constitutional no acute distress - Routine HEENT Exam Head: Present: normocephalic Eye: Present: EOMI ENT: Present: mucous membranes moist - Routine Neck Exam Present: supple - Routine Respiratory Exam Present: CTA bilaterally - Routine Cardiovascular Exam Present: RRR, S1, S2 - Routine Abdominal Exam Present: soft, normoactive bowel sounds - Routine Extremities Exam Present: pulses intact - Routine Skin Exam Present: intact - Routine Neurological Exam Present: alert, oriented X3 - Detailed Neurological Exam: Coma Scale Verbal Response: Oriented - Routine Psychiatric Exam Present: normal affect, normal thought process Results - Labs CBC & Chem 7: 05/24/18 04:19 05/24/18 04:19 Laboratory Results - last 24 hr 05/23/18 05/23/18 05/24/18 08:05 08:05 04:19 CBC w Diff Slide review pending WBC 9.2 RBC 3.83 L Hgb 10.8 L Hct 34.1 L MCV 88.9 MCH 28.2 MCHC 31.8 L RDW 14.1 Plt Count 100 L MPV 8.3 Prelim Diff (Auto) Neut % (Auto) 80.0 H Lymph % (Auto) 7.0 L [place] % (Auto) 12.1 H Eos % (Auto) 0.2 Baso % (Auto) 0.7 Neut # (Auto) 7.4 Lymph # (Auto) 0.6 L [place] # (Auto) 1.1 H Eos # (Auto) 0.0 Baso # (Auto) 0.1 WBC Differential Manual diff final Seg Neuts % (Manual) 66 Band Neuts % (Manual) 13 H Lymphocytes % (Manual) 9 Monocytes % (Manual) 10 H Eosinophils % (Manual) 1 Basophils % (Manual) 1 Abs Neuts (Manual) 7.3 Differential Comment . Platelet Estimate Low L Platelet Morphology Normal Ovalocytes Sodium 142 Potassium 3.9 Chloride 115 H Carbon Dioxide 17.0 L Anion Gap 10 BUN 31 H Creatinine 2.36 H Estimated GFR 31 L Random Glucose 84 Lactic Acid 1.2 Calcium 8.8 05/24/18 04:19 CBC w Diff WBC 6.5 RBC 3.32 L Hgb 9.7 L Hct 30.0 L MCV 90.5 MCH 29.2 MCHC 32.3 RDW 15.2 Plt Count 82 L MPV 7.6 Prelim Diff (Auto) Slide review pending Neut % (Auto) 73.6 H Lymph % (Auto) 11.2 [place] % (Auto) 14.1 H Eos % (Auto) 0.9 Baso % (Auto) 0.2 Neut # (Auto) 4.8 Lymph # (Auto) 0.7 L [place] # (Auto) 0.9 Eos # (Auto) 0.1 Baso # (Auto) 0.0 WBC Differential Manual diff final Seg Neuts % (Manual) 69 Band Neuts % (Manual) 13 H Lymphocytes % (Manual) 13 Monocytes % (Manual) 5 Eosinophils % (Manual) Basophils % (Manual) Abs Neuts (Manual) 5.3 Differential Comment . Platelet Estimate Low L Platelet Morphology Normal Ovalocytes 1+ H Sodium Potassium Chloride Carbon Dioxide Anion Gap BUN Creatinine Estimated GFR Random Glucose Lactic Acid Calcium Microbiology 05/22/18 23:00 Clean Catch Urine Urine Culture - Preliminary Immature growth - reincubate Assessment and Plan - Plan 23yo AAF who underwent a right iliac fossa kidney transplant in 2008 then a left iliac fossa kidney transplant in 2017 due to FSGS/HTN. Admitted with probable viral infection. ? URI based on history. Clinically continues to improve. Fevers have "broken". No new c/o. Creat continus to slowly trend down. Will begin to check daily prografs in AM (tomorrow).
[2018-05-24] MEDS: Senna/Docusate Sodium 8.6/50 MG Tablet PO SCH ×2 (08:28→20:28)
[2018-05-24] MEDS: predniSONE 5 MG Tablet PO SCH (08:28)
[2018-05-24] MEDS: Carvedilol 12.5 MG Tablet PO SCH ×2 (08:28→20:28)
--- NOTE | 2018-05-24 08:47 | P.PN ---
Subjective Interval history: She is in the bed appears in not acute distress. Was ambulating to the bathroom without any problems. No pain. No nausea vomiting. Had diarrhea yesterday. Had a forming BM today. Physical Exam Vital signs: Vital Signs 05/23/18 09:00 05/23/18 09:03 05/23/18 10:00 Temperature Pulse Rate 118 H 118 H 112 H Respiratory Rate 11 L 22 26 H Blood Pressure 152/99 H Pulse Oximetry 97 97 98 05/23/18 10:03 05/23/18 12:00 05/23/18 14:07 Temperature 103.1 F H 99 F Pulse Rate 110 H 110 H 88 Respiratory Rate 26 H 26 H 20 Blood Pressure 131/84 110/66 Pulse Oximetry 98 97 98 05/23/18 16:00 05/23/18 19:02 05/23/18 20:00 Temperature 98.1 F 98.5 F Pulse Rate 104 H 98 H 96 H Respiratory Rate 23 24 26 H Blood Pressure 132/85 146/99 H Pulse Oximetry 99 100 05/23/18 21:00 05/23/18 22:00 05/24/18 00:00 Temperature 98.8 F Pulse Rate 98 H 96 H 98 H Respiratory Rate 25 H 24 21 Blood Pressure 142/96 H 147/77 H Pulse Oximetry 99 98 05/24/18 00:01 05/24/18 04:00 Temperature 98.8 F Pulse Rate 97 H 108 H Respiratory Rate 24 Blood Pressure 141/89 H Pulse Oximetry 98 Intake & Output 05/23/18 05/24/18 05/24/18 18:59 06:59 18:59 Intake Total 820 / 820 1640 / 1640 Output Total 650 / 650 Balance 170 / 170 1640 / 1640 Weight 72.4 kg Intake: IV 100 / 100 1300 / 1300 NS Inj 1,000 ML @ 100 mls/hr IV 1000 / 1000 .CONT .Q10H AZAM Rx#:[id number] Rocephin Inj 1,000 MG In NS Inj 100 / 100 100 ML @ 200 mls/hr IV.SIG Q24H AZAM Rx#:[id number] Flagyl 500 MG Inj 100 ML @ 100 100 / 100 200 / 200 mls/hr IV.SIG Q8H AZAM Rx#: [id number] Oral 720 / 720 340 / 340 Output: Urine 650 / 650 Other: # Voids 3 Date of Last Bowel Movement 05/23/18 05/22/18 Narrative: GENERAL: Very pleasant 23-year-old female in bed appears in not acute distress. CARDIOVASCULAR: Regular rate and rhythm without murmurs, gallops, or rubs. RESPIRATORY: Breath sounds equal bilaterally. No accessory muscle use. GASTROINTESTINAL: Surgical scar well-healed. Abdomen soft, non-tender, nondistended. MUSCULOSKELETAL: No cyanosis, or edema. BACK: Nontender without obvious deformity. No CVA tenderness. Results - Labs CBC & Chem 7: 05/24/18 04:19 05/24/18 04:19 Laboratory Results - last 24 hr 05/23/18 05/23/18 05/24/18 08:05 08:05 04:19 WBC RBC Hgb Hct MCV MCH MCHC RDW Plt Count MPV Prelim Diff (Auto) Neut % (Auto) Lymph % (Auto) [place] % (Auto) Eos % (Auto) Baso % (Auto) Neut # (Auto) Lymph # (Auto) [place] # (Auto) Eos # (Auto) Baso # (Auto) WBC Differential Manual diff final Seg Neuts % (Manual) 66 Band Neuts % (Manual) 13 H Lymphocytes % (Manual) 9 Monocytes % (Manual) 10 H Eosinophils % (Manual) 1 Basophils % (Manual) 1 Abs Neuts (Manual) 7.3 Differential Comment Platelet Estimate Low L Platelet Morphology Normal Ovalocytes Sodium 142 Potassium 3.9 Chloride 115 H Carbon Dioxide 17.0 L Anion Gap 10 BUN 31 H Creatinine 2.36 H Estimated GFR 31 L Random Glucose 84 Lactic Acid 1.2 Calcium 8.8 05/24/18 04:19 WBC 6.5 RBC 3.32 L Hgb 9.7 L Hct 30.0 L MCV 90.5 MCH 29.2 MCHC 32.3 RDW 15.2 Plt Count 82 L MPV 7.6 Prelim Diff (Auto) Slide review pending Neut % (Auto) 73.6 H Lymph % (Auto) 11.2 [place] % (Auto) 14.1 H Eos % (Auto) 0.9 Baso % (Auto) 0.2 Neut # (Auto) 4.8 Lymph # (Auto) 0.7 L [place] # (Auto) 0.9 Eos # (Auto) 0.1 Baso # (Auto) 0.0 WBC Differential Manual diff final Seg Neuts % (Manual) 69 Band Neuts % (Manual) 13 H Lymphocytes % (Manual) 13 Monocytes % (Manual) 5 Eosinophils % (Manual) Basophils % (Manual) Abs Neuts (Manual) 5.3 Differential Comment . Platelet Estimate Low L Platelet Morphology Normal Ovalocytes 1+ H Sodium Potassium Chloride Carbon Dioxide Anion Gap BUN Creatinine Estimated GFR Random Glucose Lactic Acid Calcium Microbiology 05/22/18 23:00 Clean Catch Urine Urine Culture - Preliminary Immature growth - reincubate Assessment and Plan - Assessment (1) Sepsis Code(s): A41.9 - Sepsis, unspecified organism Status: Acute (2) Immunosuppression Code(s): D89.9 - Disorder involving the immune mechanism, unspecified Status: Acute (3) Status post kidney transplant Code(s): Z94.0 - Kidney transplant status Status: Acute (4) Diarrhea Code(s): R19.7 - Diarrhea, unspecified Status: Acute (5) Acute kidney injury Code(s): N17.9 - Acute kidney failure, unspecified Status: Acute - Plan ZAHRA (acute kidney injury) The patient has CKD, has been diagnosed with BK virus nephropathy last year. Has been placed on Leflunomide (which is of questionable efficacy), immunosuppression was reduced. Underlying disease apparently is FSGS. There is no evidence of relapse of FSGS as she has only trace proteinuria. ZAHRA likely is due to pre-renal azotemia due to intravascular volume depletion, also could be due to sepsis. Consider the possibility of pyelonephritis. Continue IVF. Avoid nephrotoxic agents. Plan US of transplanted kidney. Obtain Tacrolimus level. Nephrology Dr Adams is ff Renal transplant specialist is also ff Dr Arnett Status post kidney transplant Cont Tacrolimus, Prednisone and Leflunomide UTI (urinary tract infection) Cont Ceftriaxone. Await cultures. Patient is also on Flagyl. Nausea, vomiting and diarrhea Symptoms have improved. Continue IVF, symptomatic management. Discussed with the patient, nurse, Dr Arnett
[2018-05-24] MEDS ORDERED: LEFLUNOMIDE 20 MG PO SCH (09:00)
--- NOTE | 2018-05-24 12:13 | P.CONNP ---
History of Present Illness Service: Nephrology Reason for Consult: renal transplant patient, ZAHRA Primary Care Provider: SANTANA INGRAM Chief Complaint: Nausea, vomiting, diarrhea History of Present Illness: This is a 23 year old woman with history of renal transplant in 2008 that lasted for about 4 years. She was back on dialysis, before getting another renal transplant in October of 2016. 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 The first transplant failed because of relapse of FSGS. 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 She did have a renal biopsy at that time. Patient was asked to stop taking CellCept. She is now on Leflunomide, along with Tacrolimus and Prednisone. Patient reports that her baseline creatinine is about 1.7-1.8, but when she was diagnosed with BK virus nephropathy, creatinine was more than 2. Patient lives in [facility], had renal transplants in [facility] in [place]. Patient is visiting this area, developed fever, vomiting and diarrhea. She was admitted with acute on chronic renal failure. IVF started. Renal function appears to have improved. UA was abnormal, suggestive of UTI. Patient has been placed on Ceftriaxone and Flagyl. She was febrile yesterday, fever appears to have improved today. Review of Systems Constitutional: Reports body ache(s), Reports chills, Reports fatigue Eyes: Denies blurry vision Ears, Nose, Mouth, and Throat: Reports dry mouth Cardiovascular: Denies chest pain Gastrointestinal: Denies abdominal pain Genitourinary: Denies blood in urine Musculoskeletal: Denies muscle cramps Skin/Breast: Denies change in skin color Neurologic: Denies abnormal hearing, Denies abnormal movements, Denies convulsions PMFSH - History History Provided By: Patient - Medical History Medical History: Medical History (Last Updated 05/23/18 @ 08:19 by SETH Walker) BK polyoma nephropathy Focal segmental glomerulosclerosis History of Clostridium difficile infection History of end stage renal disease History of hypertension - Surgical History Surgical History: Surgical History (Last Updated 05/23/18 @ 11:44 by Kris Arnett MD) Arteriovenous fistula History of kidney transplant - Family History Family History: Family History (Last Updated 05/23/18 @ 11:44 by Kris Arnett MD) Father History of end stage renal disease History of diabetes mellitus Mother History of diabetes mellitus - Tobacco History Second Hand Smoke Exposure: No Tobacco Use In Past 30 Days: No Smoking Status: Never smoker - Alcohol History How Often Do You Have a Drink Containing Alcohol: Never - Substance Use History Substance History: No History of Abuse - Travel History History of Recent Travel: No Recent Travel in the [place] Within the Last 8 Weeks: No Recent Travel Out of the Country Within the Last 8 Weeks: No - Immunization History Tetanus Immunization: Unsure Hx Influenza Vaccine This Season: No Medications and Allergies Active Medications: Active Medications Acetaminophen (Tylenol) 650 mg PO Q4H PRN PRN Reason: Temp > 100.4 Last Admin: 05/23/18 08:03 Dose: 650 mg Al Hydroxide/Mg Hydroxide (Milk Of Magnesia Liq) 30 ml PO Q12H PRN PRN Reason: Mild Constipation Bisacodyl (Dulcolax Supp) 10 mg RECTAL DAILY PRN PRN Reason: SEVERE CONSITIPATION Carvedilol (Coreg) 25 mg PO BID [facility] Last Admin: 05/24/18 08:28 Dose: 25 mg Sodium Chloride (Ns Inj) 500 mls @ 0 mls/hr IV.SIG BOLUS [facility] Last Infusion: 05/22/18 23:46 Dose: Infused Sodium Chloride (Ns Inj) 500 mls @ 0 mls/hr IV.SIG BOLUS [facility] Sodium Chloride (Ns Inj) 1,000 mls @ 100 mls/hr IV.CONT .Q10H [facility] Last Admin: 05/24/18 06:28 Dose: Not Given Ceftriaxone Sodium 1,000 mg/ (Sodium Chloride) 100 mls @ 200 mls/hr IV.SIG Q24H [facility] Last Infusion: 05/24/18 01:00 Dose: Infused Metronidazole/Sodium Chloride (Flagyl 500 Mg Inj) 100 mls @ 100 mls/hr IV.SIG Q8H [facility] Last Infusion: 05/24/18 10:15 Dose: Infused Lactulose (Lactulose Liq) 30 ml PO DAILY PRN PRN Reason: SEVERE CONSITIPATION Morphine Sulfate (Morphine Inj) 2 mg IV.PUSH Q4H PRN PRN Reason: PAIN 6-10 Nifedipine (Procardia Xl) 60 mg PO DAILY [facility] Last Admin: 05/24/18 08:28 Dose: 60 mg Ondansetron HCl (Zofran Inj) 4 mg IV.PUSH Q6H PRN PRN Reason: NAUSEA OR VOMITING Pt Own: Leflunomide (20mg Tablets) 0 each PO DAILY [facility] Last Admin: 05/24/18 10:00 Dose: 1 each Prednisone (Deltasone) 5 mg PO DAILY [facility] Last Admin: 05/24/18 08:28 Dose: 5 mg Senna/Docusate Sodium (Brooke-Colace) 1 tab PO BID [facility] Last Admin: 05/24/18 08:28 Dose: Not Given Sennosides (Senokot) 17.2 mg PO Q12H PRN PRN Reason: Moderate Constipation Sodium Bicarbonate (Sodium Bicarbonate) 325 mg PO BID [facility] Last Admin: 05/24/18 10:00 Dose: 325 mg Sodium Chloride (Ns Flush) 2 ml IV.FLUSH PRN PRN PRN Reason: FLUSH AFTER USING IV ACCESS Tacrolimus (Prograf) 2 mg PO Q12H [facility] Last Admin: 05/24/18 00:00 Dose: 2 mg Allergies Allergy/AdvReac Type Severity Reaction Status Date / Time No Known Allergies Allergy Verified 05/22/18 22:19 Home Medications Medication Instructions Recorded Confirmed Type Multi Vitamin 05/22/18 History aspirin [Aspir-81] 81 mg PO DAILY 05/22/18 05/22/18 History carvedilol [Coreg] 25 mg PO BID 05/22/18 05/22/18 History ciprofloxacin HCl [Cipro] 500 mg PO Q12H 05/22/18 05/22/18 History furosemide [Lasix] 40 mg PO DAILY 05/22/18 05/22/18 History magnesium oxide 400 mg PO BID 05/22/18 05/22/18 History nifedipine 60 mg PO DAILY 05/22/18 05/22/18 History prednisone 5 mg PO DAILY 05/22/18 05/22/18 History sodium bicarbonate 325 mg PO BID 05/22/18 05/22/18 History tacrolimus [Prograf] 2 mg PO Q12H 05/22/18 05/22/18 History Exam Vital signs: Vital Signs 05/23/18 12:00 05/23/18 14:07 05/23/18 16:00 Temperature 99 F 98.1 F Pulse Rate 110 H 88 104 H Respiratory Rate 26 H 20 23 Blood Pressure 110/66 Pulse Oximetry 97 98 99 05/23/18 19:02 05/23/18 20:00 05/23/18 21:00 Temperature 98.5 F Pulse Rate 98 H 96 H 98 H Respiratory Rate 24 26 H 25 H Blood Pressure 132/85 146/99 H Pulse Oximetry 100 05/23/18 22:00 05/24/18 00:00 05/24/18 00:01 Temperature 98.8 F Pulse Rate 96 H 98 H 97 H Respiratory Rate 24 21 Blood Pressure 142/96 H 147/77 H Pulse Oximetry 99 98 05/24/18 04:00 Temperature 98.8 F Pulse Rate 108 H Respiratory Rate 24 Blood Pressure 141/89 H Pulse Oximetry 98 Intake & Output 05/23/18 05/24/18 05/24/18 18:59 06:59 18:59 Intake Total 820 / 820 1640 / 1640 100 / 100 Output Total 650 / 650 Balance 170 / 170 1640 / 1640 100 / 100 Weight 72.4 kg Intake: IV 100 / 100 1300 / 1300 100 / 100 NS Inj 1,000 ML @ 100 mls/hr IV 1000 / 1000 .CONT .Q10H [facility] Rx#:[id number] Rocephin Inj 1,000 MG In NS Inj 100 / 100 100 ML @ 200 mls/hr IV.SIG Q24H [facility] Rx#:[id number] Flagyl 500 MG Inj 100 ML @ 100 100 / 100 200 / 200 100 / 100 mls/hr IV.SIG Q8H [facility] Rx#: [id number] Oral 720 / 720 340 / 340 Output: Urine 650 / 650 Other: # Voids 3 Date of Last Bowel Movement 05/23/18 05/22/18 05/22/18 - Constitutional no acute distress - Routine HEENT Exam Head: Present: normocephalic, atraumatic Eye: Present: EOMI, PERRL ENT: Present: mucous membranes moist - Routine Neck Exam Present: supple, full ROM. Absent: JVD - Routine Respiratory Exam Present: CTA bilaterally - Routine Cardiovascular Exam Present: RRR, S1, S2 - Routine Abdominal Exam Present: soft, normoactive bowel sounds Comments: Kidney felt in the LLQ. - Routine Extremities Exam Absent: cyanosis, clubbing, edema - Routine Skin Exam Present: intact - Routine Neurological Exam Present: alert, oriented X3, CN II-XII intact Results - Lab Results 05/24/18 04:19 05/24/18 04:19 Most recent lab results Calcium 8.8 mg/dL (8.5-10.1) 05/24/18 04:19 Assessment and Plan - Assessment (1) ZAHRA (acute kidney injury) Code(s): N17.9 - Acute kidney failure, unspecified Status: Acute Plan: The patient has CKD, has been diagnosed with BK virus nephropathy last year. Has been placed on Leflunomide (which is of questionable efficacy), immunosuppression was reduced. Underlying disease apparently is FSGS. There is no evidence of relapse of FSGS as she has only trace proteinuria. ZAHRA likely is due to pre-renal azotemia due to intravascular volume depletion, also could be due to sepsis. Consider the possibility of pyelonephritis. Continue IVF. Avoid nephrotoxic agents. I will order US of transplanted kidney. Obtain Tacrolimus level. (2) Status post kidney transplant Code(s): Z94.0 - Kidney transplant status Status: Acute Plan: See above. Currently on Tacrolimus, Prednisone and Leflunomide, these are being continued. (3) UTI (urinary tract infection) Code(s): N39.0 - Urinary tract infection, site not specified Status: Acute Plan: possible sepsis, possible pyelonephritis? On Ceftriaxone. Await cultures. Patient is also on Flagyl. (4) Nausea, vomiting and diarrhea Code(s): R11.2 - Nausea with vomiting, unspecified; R19.7 - Diarrhea, unspecified Status: Acute - Plan symptoms have improved. Continue IVF, symptomatic management. Consider obtaining CMV titers. - Attending Attestation Thanks for the consult.
--- NOTE | 2018-05-24 15:56 | US ---
EXAM DATE: 05/24/2018 2:07 PM EDT AGE/SEX: 23 years / Female INDICATIONS: Abnormal labs. CLINICAL DATA: This is the patient's initial encounter. Patient reports that signs and symptoms have been present for 1 day and indicates a pain score of 0/10. MEDICAL/SURGICAL HISTORY: Renal disease, end stage. Hypertension. BK polyoma nephropathy. FSGS . C.diff. . AV fistula. RLQ renal transplant. LLQ renal transplant. COMPARISON: No prior exams available for comparison. MEASUREMENTS: Transplant Kidney:__12.2 x 6.0 x 5.9 cm Location:__Left lower quadrant Arc[place] Arteries Resistive Index: Upper - 0.6 Mid - 0.6 Lower - 0.6 Main Renal Artery Velocity:__123 Main Renal Vein:__Patent External Iliac Artery Velocity:__105 cm/sec External Iliac Vein:__Patent cm/sec FINDINGS: Transplant Kidney: There is slight prominence of the intrarenal collecting system but no overt hydro nephrosis. No peritransplant fluid. Urinary Bladder: Within normal limits given the degree of distension. Other: None. CONCLUSION: 1. Mild caliectasis otherwise unremarkable Electronically signed by: Hayden Mendez MD 05/24/2018 3:55 PM EDT
[2018-05-25] MEDS: Sod Chloride 0.9% Inj 1,000 ML IV.CONT SCH (01:43)
[2018-05-25] MEDS ORDERED: LEFLUNOMIDE 20 MG PO SCH (08:00)
[2018-05-25] MEDS: predniSONE 5 MG Tablet PO SCH (09:35)
[2018-05-25] MEDS: Carvedilol 12.5 MG Tablet PO SCH (09:36)
[2018-05-25] MEDS: Senna/Docusate Sodium 8.6/50 MG Tablet PO SCH (09:37)
--- NOTE | 2018-05-25 10:25 | P.PNNP ---
Subjective Interval history: Feels better. Diarrhea and vomiting have subsided. No fever. Labs from today are pending. Physical Exam Vital signs: Vital Signs 05/24/18 12:00 05/24/18 16:00 05/24/18 19:00 Temperature 99.9 F H 98.8 F Pulse Rate 110 H 105 H 99 H Respiratory Rate 21 21 Blood Pressure 137/90 144/88 H Pulse Oximetry 100 99 05/24/18 20:00 05/24/18 21:00 05/24/18 22:00 Temperature 98.3 F Pulse Rate 98 H 100 H 98 H Respiratory Rate 18 Blood Pressure 147/91 H Pulse Oximetry 97 05/24/18 23:00 05/25/18 00:00 05/25/18 01:00 Temperature 98.2 F Pulse Rate 93 H 95 H 96 H Respiratory Rate 16 Blood Pressure 139/89 Pulse Oximetry 97 05/25/18 02:00 05/25/18 03:00 05/25/18 04:00 Temperature 98.7 F Pulse Rate 96 H 70 96 H Respiratory Rate 15 Blood Pressure 135/96 H Pulse Oximetry 96 05/25/18 05:00 05/25/18 06:00 05/25/18 07:00 Temperature Pulse Rate 99 H 100 H 104 H Respiratory Rate Blood Pressure Pulse Oximetry 05/25/18 08:00 05/25/18 09:00 05/25/18 10:00 Temperature 98.9 F Pulse Rate 96 H 98 H 120 H Respiratory Rate Blood Pressure 163/94 H Pulse Oximetry Intake & Output 05/24/18 05/25/18 05/25/18 18:59 06:59 18:59 Intake Total 1680 / 1680 1630 / 1630 Output Total 400 / 400 Balance 1680 / 1680 1230 / 1230 Weight 71 kg Intake: IV 1200 / 1200 1150 / 1150 NS Inj 1,000 ML @ 100 mls/hr IV 1000 / 1000 950 / 950 .CONT .Q10H [facility] Rx#:[id number] Rocephin Inj 1,000 MG In NS Inj 100 / 100 100 ML @ 200 mls/hr IV.SIG Q24H [facility] Rx#:[id number] Flagyl 500 MG Inj 100 ML @ 100 200 / 200 100 / 100 mls/hr IV.SIG Q8H [facility] Rx#: [id number] Oral 480 / 480 480 / 480 Output: Urine 400 / 400 Other: # Voids 2 Date of Last Bowel Movement 05/22/18 05/24/18 Narrative: GENERAL: Very pleasant 23-year-old female in bed appears in not acute distress. CARDIOVASCULAR: Regular rate and rhythm without murmurs, gallops, or rubs. RESPIRATORY: Breath sounds equal bilaterally. No accessory muscle use. GASTROINTESTINAL: Surgical scar well-healed. Abdomen soft, non-tender, nondistended. MUSCULOSKELETAL: No cyanosis, or edema. BACK: Nontender without obvious deformity. No CVA tenderness. Assessment and Plan - Assessment (1) ZAHRA (acute kidney injury) Code(s): N17.9 - Acute kidney failure, unspecified Status: Acute Plan: The patient has CKD, has been diagnosed with BK virus nephropathy last year. Has been placed on Leflunomide (which is of questionable efficacy), immunosuppression was reduced. Underlying disease apparently is FSGS. There is no evidence of relapse of FSGS as she has only trace proteinuria. ZAHRA likely is due to pre-renal azotemia due to intravascular volume depletion, Taper off fluids. Avoid nephrotoxic agents. Renal US did not reveal hydronephrosis. Tacrolimus level is pending. (2) Status post kidney transplant Code(s): Z94.0 - Kidney transplant status Status: Acute Plan: See above. Currently on Tacrolimus, Prednisone and Leflunomide, these are being continued. (3) UTI (urinary tract infection) Code(s): N39.0 - Urinary tract infection, site not specified Status: Acute Plan: possible sepsis, possible pyelonephritis? On Ceftriaxone. Await cultures. Patient is also on Flagyl. (4) Nausea, vomiting and diarrhea Code(s): R11.2 - Nausea with vomiting, unspecified; R19.7 - Diarrhea, unspecified Status: Acute - Plan symptoms have improved. Continue IVF, symptomatic management. CMV PCR negative. - Attending Attestation Patient can be discharged from renal standpoint if renal function is stable/ improved today.
[2018-05-25 11:04] LABS: Calcium 9.2 mg/dL (8.5-10.1); Carbon Dioxide 18.5 meq/L (21.0-32.0); Potassium 3.6 meq/L (3.5-5.1)
[2018-05-25 11:13] VITALS: BP 149/95; PULSE 92; RESP 16; TEMP 98.7; O2SAT 100
== END 2018-05-25 14:19 | disposition home or self-care (01) ==
LOC: PHED 20:45 → PHEDA 05-23 00:02 → PHICU 05-23 02:52 → N03 05-23 22:40 → HCIS 05-24 14:02
PROVIDERS: ADMIT Hospitalist; ATTEND Hospitalist